=== PATIENT | male | born 1985 | race Caucasian/White ===

== ENCOUNTER 2016-05-30 14:30 | Emergency (ER) | payer MEDICARE, OTHER | END 2016-05-30 16:50 | disposition home or self-care (01) | LOC: ER 14:30 | DX: T36.0X5A Adverse effect of penicillins, initial encounter (principal); L27.0 Generalized skin eruption due to drugs and medicaments taken internally; I10 Essential (primary) hypertension; E66.01 Morbid (severe) obesity due to excess calories; F17.210 Nicotine dependence, cigarettes, uncomplicated; Z88.1 Allergy status to other antibiotic agents; Z79.899 Other long term (current) drug therapy; Z79.82 Long term (current) use of aspirin; M30.3 Mucocutaneous lymph node syndrome [Kawasaki] | CPT/HCPCS: 96372; 99282-25; 99283; J2930 ==